=== PATIENT | male | born 1970 | race Caucasian/White ===

== ENCOUNTER 2020-07-28 13:33 | Emergency (ER) | payer OTHER ==
[2020-07-28] MEDS ORDERED: Sodium Chloride 0.9% 10 ML Syringe FLUSH PRN (13:39)
[2020-07-28] MEDS ORDERED: Ketorolac 30 MG/ML SDV IVPUSH ONE (13:41)
[2020-07-28] MEDS ORDERED: Ondansetron 4 MG/2 ML SDV IVPUSH ONE (13:41)
--- NOTE | 2020-07-28 13:49 | EDM.PDOC ---
ED HPI GENERAL MEDICAL PROBLEM - General Chief Complaint: Flank Pain Stated Complaint: KIDNEY STONE Time Seen by Provider: 07/28/20 13:43 Source of Information: Reports: Patient History Limitations: Reports: No Limitations - History of Present Illness INITIAL COMMENTS - FREE TEXT/NARRATIVE: Patient presents to the ED for right flank pain with radiation to the right testicle. He states he does not drink many fluids, was out in the heat for the last several days. Has been having intermittant flank pain for some time, but when he tried to get it evaluated, his insurance did not cover clinic CT. Patient has been doing well until today when the pain is worsening, with radiation to the right testicle, changes in his urine stream and blood noted in the stream. Tends to have constipation, but not a new change for him. nasueated, took some tylenol but it did not help. Drove himself here. Onset: Gradual Onset Date: 07/27/20 Duration: Getting Worse Location: Reports: Radiates to (right testicle), Other (right flank) Quality: Reports: Sharp, Stabbing Improves with: Reports: None Worsens with: Reports: None Associated Symptoms: Reports: Loss of Appetite, Nausea/Vomiting Treatments ALARM ADJUSTER: Reports: Acetaminophen Right Flank Pain Score (Numeric/FACES): 8 - Related Data Allergies Allergy/AdvReac Type Severity Reaction Status Date / Time envirnmental Allergy Sneezing Uncoded 07/28/20 14:24 Home Meds: Home Meds Ibuprofen 200 mg PO Q4HR PRN 07/27/17 [History] Naproxen Sodium 220 mg PO BID 07/27/17 [History] buPROPion HCL [Wellbutrin Xl] 300 mg PO DAILY 07/27/17 [History] FLUoxetine [PROzac] 20 mg PO DAILY 07/28/20 [History] Tamsulosin [Tamsulosin 24 Hr] 0.4 mg PO DAILY #4 cap.er 07/28/20 [Rx] Past Medical History Psychiatric History: Reports: Anxiety, Depression - Past Surgical History HEENT Surgical History: Reports: Tonsillectomy, Other (See Below) Other HEENT Surgeries/Procedures: wisdom tooth extraction x 4 Other GI Surgeries/Procedures: FM HX Colon CA Social & Family History - Tobacco Use Tobacco Use Status *Q: Never Tobacco User - Alcohol Use Alcohol Use History: No - Recreational Drug Use Recreational Drug Use: No Drug Use in Last 12 Months: No ED ROS GENERAL - Review of Systems Review Of Systems: See Below Constitutional: Reports: No Symptoms HEENT: Reports: No Symptoms Respiratory: Reports: No Symptoms Cardiovascular: Reports: No Symptoms Endocrine: Reports: No Symptoms GI/Abdominal: Reports: Decreased Appetite : Reports: Dysuria, Flank Pain, Frequency, Hematuria, Urgency Musculoskeletal: Reports: No Symptoms Skin: Reports: No Symptoms Neurological: Reports: No Symptoms Psychiatric: Reports: No Symptoms ED EXAM, GI/ABD - Physical Exam Exam: See Below Exam Limited By: No Limitations General Appearance: Alert, Mild Distress Eyes: Bilateral: EOMI Ears: Normal External Exam Nose: Normal Inspection Throat/Mouth: Normal Inspection, Normal Lips, Normal Voice, Other (mild dry mucous membranes) Head: Atraumatic Neck: Normal Inspection, Supple Respiratory/Chest: No Respiratory Distress, Lungs Clear Cardiovascular: Normal Peripheral Pulses, Regular Rate, Rhythm, No Edema, No Murmur GI/Abdominal Exam: Soft, Non-Tender (Male) Exam: Deferred Rectal (Males) Exam: Deferred Back Exam: CVA Tenderness (R). No: CVA Tenderness (L), Decreased Range of Motion, Muscle Spasm, Paraspinal Tenderness, Vertebral Tenderness Extremities: Normal Inspection Neurological: Alert, Oriented, CN II-XII Intact, Normal Cognition Psychiatric: Normal Affect Course - Vital Signs Last Recorded V/S: Last Vital Signs Temp 36.7 C 07/28/20 13:35 Pulse 71 07/28/20 13:35 Resp 16 07/28/20 13:35 BP 141/79 H 07/28/20 13:35 Pulse Ox 99 07/28/20 13:35 - Orders/Labs/Meds Orders: Active Orders 24 hr Category Date Time Status Peripheral IV Insertion Adult [OM.PC] Stat Oth 07/28/20 13:39 Ordered Labs: Laboratory Tests 07/28/20 07/28/20 07/28/20 Range/Units 13:45 13:45 13:45 WBC 9.9 (4.0-10.0) x10^3/uL RBC 5.12 (4.5-6.0) x10^6/uL Hgb 15.5 (14.0-18.0) g/dL Hct 44.1 (40.0-52.0) % MCV 86.1 (78.0-93.0) fL MCH 30.3 (26.0-32.0) pg MCHC 35.1 (32.0-36.0) g/dL RDW Coeff of Ambreen 12.9 (10.0-15.0) % Plt Count 227 (130-400) x10^3/uL Neut % (Auto) 79.9 (50.0-80.0) % Lymph % (Auto) 12.9 L (25.0-50.0) % [place] % (Auto) 6.5 (2.0-11.0) % Eos % (Auto) 0.5 (0.0-4.0) % Baso % (Auto) 0.2 (0.2-1.2) % Sodium 142 (136-145) mmol/L Potassium 3.9 (3.5-5.1) mmol/L Chloride 105 (98-107) mmol/L Carbon Dioxide 26 (21-32) mmol/L Anion Gap 14.9 (5-15) mmol/L BUN 22 H (7-18) mg/dL Creatinine 1.7 H (0.70-1.30) mg/dL Est Cr Clr Drug Dosing TNP Estimated GFR (MDRD) 43 Glucose 108 H (70-99) mg/dL Lactic Acid 1.3 (0.4-2.0) mmol/L Calcium 8.9 (8.5-10.1) mg/dL Corrected Calcium 8.9 (8.5-10.1) mg/dL Total Bilirubin 1.0 (0.2-1.0) mg/dL AST 18 (15-37) U/L ALT 18 (16-63) U/L Alkaline Phosphatase 76 (46-116) U/L C-Reactive Protein 0.3 (<=0.9) mg/dL Total Protein 7.5 (6.4-8.2) g/dL Albumin 4.0 (3.4-5.0) g/dL Globulin 3.5 Albumin/Globulin Ratio 1.14 Meds: Medications Discontinued Medications Generic Name Dose Route Start Last Admin Trade Name Freq PRN Reason Stop Dose Admin Hydrocodone Bitart/Acetaminophen 1 packet 07/28/20 15:30 07/28/20 16:29 Take Home: Acetaminophen/Hydrocodone 325-5 Mg, 5 Tab Pack PO 07/28/20 15:31 1 packet ONETIME ONE Administration Hydrocodone Bitart/Acetaminophen Confirm 07/28/20 16:45 07/28/20 17:30 Acetaminophen/Hydrocodone 325-5 Mg Tab Administered 07/28/20 16:46 Not Given Dose 5 tab .ROUTE .STK-MED ONE Sodium Chloride 1,000 mls @ 1,000 mls/hr 07/28/20 13:45 07/28/20 15:14 Normal Saline IV 1,000 mls/hr ASDIRECTED TACO Administration Sodium Chloride 1,000 mls @ 1,000 mls/hr 07/28/20 15:30 Normal Saline IV ASDIRECTED TACO Ketorolac Tromethamine 30 mg 07/28/20 13:41 07/28/20 13:55 Ketorolac 30 Mg/Ml Sdv IVPUSH 07/28/20 13:42 30 mg ONETIME ONE Administration Ondansetron HCl 4 mg 07/28/20 13:41 07/28/20 13:55 Ondansetron 4 Mg/2 Ml Sdv IVPUSH 07/28/20 13:42 4 mg ONETIME ONE Administration Oxycodone/Acetaminophen Confirm 07/28/20 16:42 07/28/20 17:29 Take Home: Acetaminophen/Oxycodone 325-5 Mg, 5 Tab Pack Administered 07/28/20 16:43 Not Given Dose 1 packet .ROUTE .STK-MED ONE Sodium Chloride 10 ml 07/28/20 13:39 Sodium Chloride 0.9% 10 Ml Syringe FLUSH ASDIRECTED PRN Keep Vein Open Tamsulosin HCl 0.4 mg 07/28/20 15:20 07/28/20 15:24 Tamsulosin 0.4 Mg Cap.Er PO 07/28/20 15:21 0.4 mg ONETIME ONE Administration - Radiology Interpretation Free Text/Narrative:: CT scan with 1-2 mm right UVJ calculus with moderate right hydroureteronephrosis. small amount of fluid in the retroperitoneum which could be from calyceal rupture. discussed with Dr. Wells, radiologist. Feels further imagaing is not necessary, small amount of fluid noted. - Re-Assessments/Exams Free Text/Narrative Re-Assessment/Exam: 07/28/20 13:48 Patient appears slightly uncomfortable, will get ct without contrast. IV fluids, zofran and toradol IVP. Check labs and urine 07/28/20 15:23 still not able to produce a urine. bladder scan with minimal fluid. Discussed perinephric fluid with DR. Wells, radiology and with patient. Could be a mild calyceal rupture versus edema. Patient will be give flomax 0.4 mg Po and second liter of fluid. Educated on need for increased fluids, very close follow up and passage of this stone. Pain is much improved. HAs elevated creatinine. Needs recheck later this week. 07/28/20 1600 patient was given two liters of fluid and drank significant amount of fluid. refused/unable to give urine. discussed need to get this as if infected needs antibitoics and would need referral to urology for stent. Patient voices understanding. wants to leave. States would return with sample in the next two hours. Understands the need for complete exam and would go home, drink fluids and return this. Understands the need for close follow up to ensure stone was passes and fluid around kidney resolves and improved renal function. 18:10 patient's calls to state he is not returning with urine sample Departure - Departure Time of Disposition: 16:24 Disposition: Home, Self-Care 01 Clinical Impression: Renal calculus, right - Discharge Information *PRESCRIPTION DRUG MONITORING PROGRAM REVIEWED*: Not Applicable *COPY OF PRESCRIPTION DRUG MONITORING REPORT IN PATIENT HANNY: Not Applicable Prescriptions: Tamsulosin [Tamsulosin 24 Hr] 0.4 mg PO DAILY #4 cap.er Instructions: Renal Colic, [id number], Dietary Guidelines to Help Prevent Kidney Stones Referrals: Alma Piedra MEDICAID BILLING CLERK [Primary Care Provider] - Forms: ED Department Discharge Additional Instructions: You have some fluid around the kidney and a 1-2 mm stone that is at the most distal part of your ureter causing blockage of the kidney. You were given flomax to help pass this and need to take this daily for the next 4 days to help pass the stone. YOu need to increase your hydration as your kidney function is impacted and recheck this level this week. Call your primary care and have close follow up to ensure referral to urology is not needed. Use the hydrocodone every 4hours as needed for pain. this will cause constipation, so take a stool softener to help prevent this. Sepsis Event Note (ED) - Focused Exam Vital Signs: Vital Signs Temp Pulse Resp BP Pulse Ox 07/28/20 13:35 36.7 C 71 16 141/79 H 99 - My Orders Last 24 Hours: My Active Orders 07/28/20 13:39 Peripheral IV Insertion Adult [OM.PC] Stat - Assessment/Plan Last 24 Hours: My Active Orders 07/28/20 13:39 Peripheral IV Insertion Adult [OM.PC] Stat
[2020-07-28] MEDS: Sodium Chloride 0.9% 1,000 ML IV SCH ×2 (13:55→15:14)
[2020-07-28 14:14] LABS: CHLORIDE,CL 105 mmol/L (98-107); SODIUM,NA 142 mmol/L (136-145)
[2020-07-28 14:16] LABS: ANION GAP 14.9 mmol/L (5-15)
--- NOTE | 2020-07-28 14:47 | CT ---
[id number] CT/CT Renal Stone Protocol EXAM: RENAL STONE PROTOCOL ABDOMEN CT INDICATION: RIGHT FLANK PAIN. COMPARISON: November 14, 2015. DISCUSSION: A 1-2 mm calculus at the right ureterovesicular junction results in moderate right hydroureteronephrosis. There is a small amount of fluid in the retroperitoneum which could be from calyceal rupture. There is an additional 5.5 mm nonobstructing calculus in the mid to lower pole of the right kidney. 2 mm nonobstructing left intrarenal calculus. No left ureteral calculus or hydronephrosis. Moderate disc degeneration L5-S1. The osseous structures are otherwise unremarkable. Scattered diverticula of the colon without evidence of diverticulitis. Unenhanced images of the liver, gallbladder, pancreas, spleen, adrenal glands, small bowel, and the appendix are unremarkable. No free air free fluid. No adenopathy. IMPRESSION: 1. A 1-2 mm right UVJ calculus results in moderate right hydroureteronephrosis. Jordy Wells MD 07/28/20 [id number] Thank you for allowing us to participate in the care of your patient.
[2020-07-28] MEDS ORDERED: Tamsulosin 0.4 MG Cap.ER PO ONE (15:20)
[2020-07-28] MEDS ORDERED: Sodium Chloride 0.9% 1,000 ML IV SCH (15:30)
[2020-07-28] MEDS ORDERED: Take Home: Acetaminophen/HYDROcodone 325-5 MG, 5 Tab Pack PO ONE (15:30)
[2020-07-28] MEDS ORDERED: Take Home: Acetaminophen/oxyCODONE 325-5 MG, 5 Tab Pack ONE (16:42)
[2020-07-28] MEDS ORDERED: Acetaminophen/HYDROcodone 325-5 MG Tab ONE (16:45)
== END 2020-07-28 16:30 | disposition home or self-care (01) ==
LOC: VM.ED 13:33
DX: N13.2 Hydronephrosis with renal and ureteral calculous obstruction (principal); Z91.09 Other allergy status, other than to drugs and biological substances
CPT/HCPCS: 74176; 80053; 83605; 85025; 86140; 96374; 96375; 99284; 99284-25; A9270-GY; J1885; J2405; J7030